=== PATIENT | female | born 2000 | race Caucasian/White ===

== ENCOUNTER 2020-05-07 03:13 | Outpatient (CLI) | payer OTHER, SELFPAY ==
--- NOTE | 2020-05-07 03:13 | OBADM ---
This patient, Ilene Kwan, admitted to the OB room Labor/Delivery/Recovery 105 for observation. Patient/family oriented to hospital policies and general routines including ID bracelet, bed and alarms, visiting hours, pain management, procedures, bathroom and other care routines, personal items, smoking policy, room service/diet, and visiting hours. Patient/Family are encouraged to report perceived risks to care and to ask questions if they do not understand what they are told or what they should do.
[2020-05-07 03:28] VITALS: BMI 21.7
[2020-05-07 03:29] VITALS: TEMP 36.6
[2020-05-07 03:32] VITALS: BP 129/68; PULSE 81
[2020-05-07 03:46] VITALS: BP 120/79; PULSE 83
--- NOTE | 2020-05-07 03:51 | PC.NURSE ---
Dr. Zhao notified of negative ROM plus results, NST reactive. NST reviewed in department. Discharge orders received.
[2020-05-07 03:52] VITALS: BP 120/79; PULSE 83
== END 2020-05-07 04:07 | disposition home or self-care (01) ==
LOC: ANHLDR 04:02 → ANHOBOP 05-11 06:34
PROVIDERS: Visit Provider Obstetrics & Gynecology
DX: Z34.93 Encounter for supervision of normal pregnancy, unspecified, third trimester (principal); Z3A.35 35 weeks gestation of pregnancy; R10.9 Unspecified abdominal pain
CPT/HCPCS: 59025; 84112

== ENCOUNTER 2020-05-25 18:10 | Observation (INO) | payer OTHER, SELFPAY ==
[2020-05-25 18:45] VITALS: BP 124/72; PULSE 108
[2020-05-25 19:02] VITALS: BMI 21.4
--- NOTE | 2020-05-25 19:02 | OBADM ---
This patient, Ilene Kwan, admitted to the OB room Labor/Delivery/Recovery 106 for observation. Patient/family oriented to hospital policies and general routines including ID bracelet, bed and alarms, visiting hours, pain management, procedures, bathroom and other care routines, personal items, smoking policy, room service/diet, and visiting hours. Patient/Family are encouraged to report perceived risks to care and to ask questions if they do not understand what they are told or what they should do.
[2020-05-25 19:16] LABS: Add Urine Microscopic? YES; Appearance Urine Clear (Clear); Bacteria Urine Trace /hpf; Bilirubin Urine Negative (Negative); Blood Urine Negative (Negative); Color Urine Yellow (Yellow); Glucose Urine UA Negative (Negative); Ketones Urine Trace mg/dL (Negative); Leukocyte Esterase Ur Negative LEU/UL (Negative); Mucus Urine Few /lpf; Nitrate Urine Negative (Negative); Protein Urine Negative (Negative); RBC Urine 0-2 /hpf (0-2); Specific Grav Ur 1.019 (1.001-1.035); Squamous Epithelial Cell Urine Occasional /hpf (Few); Urobilinogen Urine Negative mg/dL (<2.0); WBC Urine 0-3 /hpf
--- NOTE | 2020-05-28 12:40 | P.PNOB_ITS ---
OB - Triage/Final Diagnosis Evaluation Laboratory results: Laboratory Tests 05/25/20 19:06 Urine Color Yellow Urine Appearance Clear Urine pH 6.0 Ur Specific [place] 1.019 Urine Protein Negative Urine Glucose (UA) Negative Urine Ketones Trace Ur Blood (Man) Negative Urine Nitrate Negative Urine Bilirubin Negative Urine Urobilinogen Negative Leukocyte Esterase Rfl Negative Urine RBC 0-2 Urine WBC 0-3 Ur Squamous Epith Cells Occasional Urine Bacteria Trace Urine Mucus Few H Final Diagnosis (1) Abdominal pain affecting : Code(s): O26.899 - Other specified related conditions, unspecified trimester; R10.9 - Unspecified abdominal pain Status: Acute
== END 2020-05-25 19:39 | disposition home or self-care (01) ==
PROVIDERS: Admitting Provider Obstetrics & Gynecology; PCP Family Medicine; Visit Provider Obstetrics & Gynecology
DX: O26.893 Other specified pregnancy related conditions, third trimester (principal); R10.9 Unspecified abdominal pain; Z3A.37 37 weeks gestation of pregnancy
CPT/HCPCS: 81001; G0378; G0379

== ENCOUNTER 2020-06-03 00:25 | Observation (INO) | payer OTHER, SELFPAY ==
[2020-06-03 02:32] VITALS: BMI 21.9
--- NOTE | 2020-06-03 02:32 | LDADM ---
This patient, Ilene Kwan, was admitted to Labor/Delivery/Recovery 104 on 06/03/20 at 00:25. Plans for labor, pain management and were discussed with patient. Patient/family oriented to hospital policies and general routines including ID bracelet, bed and alarms, visiting hours, pain management, procedures, bathroom and other care routines, personal items, smoking policy, room service/diet and guest tray routines, infant security routines, and visiting hours. Patient/Family are encouraged to report perceived risks to care and to ask questions if they do not understand what they are told or what they should do. See OBIX for further documentation.
--- NOTE | 2020-06-03 03:18 | PC.NURSE ---
pt came in c/o contractions that started around 2200-06/02/2020. stated that they were anywhere from 10-20 minutes apart. pt has not felt contractions since being here but does c/o lower back pain that comes and goes. 0215- spoke with Dr. Zhao- informed of pt being in OB unit. update on status given. cervical exam with no change from admission. pt not feeling any contractions at this time. ok to d/c home. pt instructed on when to return to OB unit.
--- NOTE | 2020-06-09 11:15 | PM.OBTRLD ---
OB - Triage/Final Diagnosis Final Diagnosis (1) Abdominal pain affecting : Code(s): O26.899 - Other specified related conditions, unspecified trimester; R10.9 - Unspecified abdominal pain Status: Acute Plan: mild, irregular ctx's noted; no change in cervix. FHT reassuring. pt was discharged home.
== END 2020-06-03 02:45 | disposition home or self-care (01) ==
PROVIDERS: Admitting Provider Obstetrics & Gynecology; PCP Family Medicine; Visit Provider Obstetrics & Gynecology
DX: O26.899 Other specified pregnancy related conditions, unspecified trimester (principal); R10.9 Unspecified abdominal pain; Z3A.00 Weeks of gestation of pregnancy not specified
CPT/HCPCS: G0378; G0379

== ENCOUNTER 2020-06-08 06:43 | Inpatient (IN) | payer OTHER, SELFPAY ==
[2020-06-08] VITALS (97 sets, daily range): BP systolic 99–187; BP diastolic 65–95; PULSE 61–101; RESP 13; TEMP 36.6–36.9; O2SAT 98–100
[2020-06-08 07:37] LABS: Basophils Percent Auto 0.2 % (0.2-1.2); Eosinophils Absolute Auto 0.1 K/mm3 (0-0.3); Eosinophils Percent Auto 1.1 % (0-4.4); Hematocrit 35.1 % (37.0-47.0); Hemoglobin 12.1 g/dL (12.0-15.0); Immature Granulocyte Absolute 0.04 K/mm3 (0.00-0.031); Immature Granulocyte Percent A 0.4 % (0-0.5); Immature Platelet Fraction Pct 18.3 % (0.9-11.2); Lymphocytes Absolute Auto 1.85 K/mm3 (0.9-3.2); Lymphocytes Percent Auto 19.8 % (18.3-44.2); Mean Corpuscular HGB Conc 34.5 g/dl (32-36); Mean Corpuscular Hemoglobin 30.5 pg (26-34); Mean Corpuscular Volume 88.4 fl (80-100); Mean Platelet Volume 14.3 fl (7.4-10.4); Monocytes Absolute Auto 0.8 K/mm3 (0.1-0.6); Neutrophils Absolute Auto 6.5 K/mm3 (1.3-6.7); Neutrophils Percent Auto 69.5 % (45.5-73.1); Platelet Count Result 117 k/mm3 (150-375); Red Blood Count 3.97 M/mm3 (4.2-5.4); Red Cell Distribution Width 11.9 % (11.5-14.5); White Blood Count 9.4 K/mm3 (4.5-10.0)
[2020-06-08] MEDS: LACTATED RINGERS 1,000 ML 125 ML IV CONT ×3 (07:42→10:55)
[2020-06-08 07:46] LABS: Alanine Aminotransferase 14 U/L (4-35); Albumin Level 3.8 g/dL (3.5-5.1); Alkaline Phosphatase 84 U/L (38-126); Anion Gap 8 mmol/L (8-16); Aspartate Amino Transferase 22 U/L (14-36); Bilirubin,Total 0.3 mg/dL (0.2-1.3); Blood Urea Nitrogen 14 mg/dL (7-17); Calcium 8.7 mg/dL (8.4-10.2); Carbon Dioxide 23 mmol/L (22-30); Chloride 104 mmol/L (98-107); Estimated Glomerular Filt Rate > 60; Glucose 103 mg/dL (65-105); Potassium 3.6 mmol/L (3.4-5.0); Sodium 135 mmol/L (137-145); Uric Acid 3.6 mg/dL (2.5-7.5)
--- NOTE | 2020-06-08 08:00 | PM.IMHP ---
H&P: HPI History of Present Illness Date/Time: 06/08/20 0800 Chief complaint: IOL Narrative: Ilene Kwan is a 19 yo @ 39.2wks who presented for elective IOL. Good movement. She does report contractions. No bleeding or leakage of fluid. Review of Systems Constitutional: Constitutional: Denies body ache(s), Denies chills and Denies fatigue Eyes: Eyes: Denies blurry vision Cardiovascular: Cardiovascular: Denies chest pain and Denies palpitations Respiratory: Respiratory: Denies cough and Denies dyspnea Gastrointestinal: Gastrointestinal: Denies abdominal pain, Denies nausea and Denies vomiting Genitourinary: Genitourinary: Denies vaginal discharge Neurologic: Denies headache(s) Psychiatric: Psychiatric: Denies anxiety [facility] Family History Family History Grandparent Alzheimer disease Cancer Arthritis Heart attack Father Suicide Social History Social History Years smoked: 1 Smoking status: Former smoker Tobacco type: cigarettes Second hand tobacco smoke exposure: Yes Substance use: never Spiritual care concerns: No Meds Home Medications and Allergies Home Medications Medication Instructions Recorded Confirmed Type PNV cmb#95-ferrous fumarate-FA 1 tablet PO DAILY 05/07/20 06/08/20 History [] Allergies Allergy/AdvReac Type Severity Reaction Status Date / Time No Known Allergies Allergy Verified 05/20/20 14:55 Vital Signs Vital Signs - 24 hr 06/08/20 07:03 06/08/20 07:18 06/08/20 07:30 Temperature Pulse Rate 84 101 H 85 Blood Pressure 152/85 H 141/82 H 130/76 Pulse Oximetry 06/08/20 08:00 06/08/20 08:15 06/08/20 08:30 Temperature Pulse Rate 90 88 88 Blood Pressure 136/90 132/85 130/88 Pulse Oximetry 06/08/20 09:17 06/08/20 09:18 06/08/20 09:30 Temperature 36.8 C Pulse Rate 79 78 Blood Pressure 128/80 116/70 Pulse Oximetry 06/08/20 09:45 06/08/20 10:15 06/08/20 10:30 Temperature Pulse Rate 84 72 72 Blood Pressure 119/77 138/81 102/67 Pulse Oximetry 06/08/20 10:46 06/08/20 10:59 06/08/20 11:00 Temperature 36.6 C Pulse Rate 82 81 78 Blood Pressure 148/83 H 131/80 129/83 Pulse Oximetry 06/08/20 11:03 06/08/20 11:05 06/08/20 11:07 Temperature Pulse Rate 82 88 88 Blood Pressure 137/84 142/86 H 137/84 Pulse Oximetry 06/08/20 11:10 06/08/20 11:12 06/08/20 11:13 Temperature Pulse Rate 85 83 Blood Pressure 139/87 138/83 Pulse Oximetry 99 06/08/20 11:15 06/08/20 11:17 06/08/20 11:18 Temperature Pulse Rate 91 86 Blood Pressure 135/79 135/79 Pulse Oximetry 98 06/08/20 11:20 06/08/20 11:23 06/08/20 11:25 Temperature Pulse Rate 86 86 86 Blood Pressure 135/87 116/83 137/83 Pulse Oximetry 100 06/08/20 11:27 06/08/20 11:28 06/08/20 11:30 Temperature Pulse Rate 86 81 Blood Pressure 134/84 138/73 Pulse Oximetry 99 06/08/20 11:32 06/08/20 11:33 06/08/20 11:35 Temperature Pulse Rate 79 85 Blood Pressure 133/79 129/75 Pulse Oximetry 99 06/08/20 11:37 06/08/20 11:38 06/08/20 11:40 Temperature Pulse Rate 82 86 Blood Pressure 127/81 130/81 Pulse Oximetry 99 06/08/20 11:42 06/08/20 11:43 06/08/20 11:45 Temperature Pulse Rate 79 81 Blood Pressure 125/79 126/73 Pulse Oximetry 100 06/08/20 11:47 06/08/20 11:48 06/08/20 11:53 Temperature Pulse Rate 78 76 Blood Pressure 120/76 118/70 Pulse Oximetry 100 100 06/08/20 11:56 06/08/20 11:57 06/08/20 11:58 Temperature Pulse Rate 80 72 Blood Pressure 123/67 123/73 Pulse Oximetry 100 06/08/20 12:00 06/08/20 12:02 06/08/20 12:03 Temperature Pulse Rate 74 66 Blood Pressure 132/74 125/73 Pulse Oximetry 100 06/08/20 12:05 06/08/20 12:07 06/08/20 12:08 Temperature Pulse Rate 74 71 Blood Pressur
[2020-06-08] MEDS: OXYTOCIN 30 UNITS/NS 500 ML 30 UNITS/500 ML BAG IV CONT (08:03)
--- NOTE | 2020-06-08 13:00 | LDADM ---
This patient, Ilene Kwan, was admitted to Labor/Delivery/Recovery 106 on 06/08/20 at 06:43. Plans for labor, pain management and were discussed with patient. Patient/family oriented to hospital policies and general routines including ID bracelet, bed and alarms, visiting hours, pain management, procedures, bathroom and other care routines, personal items, smoking policy, room service/diet and guest tray routines, infant security routines, and visiting hours. Patient/Family are encouraged to report perceived risks to care and to ask questions if they do not understand what they are told or what they should do. See OBIX for further documentation.
--- NOTE | 2020-06-08 14:53 | PM.OBPRVD ---
OB - Delivery Note Procedure Delivery date: 06/08/20 Procedure: Patient progressed to complete dilation and began pushing with good effort. Prolonged decels down to the 80s were noted for a couple minutes. The patient was counseled on need for episiotomy and vacuum extraction and agreed. A small right medial lateral episiotomy was made and the vacuum was placed. With the next contraction and maternal pushing, one pull was performed and the head delivered without complications. The shoulders and body delivered without complications as well. He was immediately placed skin to skin and the mouth and nose were bulb suctioned. The umbilical cord was clamped and cut and the was taken over to the warmer for stimulation and resuscitation by the pediatric nurse. He was given approximately 5 breaths and spontaneous cry and significant skin color change were noted. A segment of the umbilical cord was then collected for cord gases and the remaining cord blood was collected for typing. With Pitocin running and gentle traction on the umbilical cord, the placenta delivered without issues. Bimanual exam showed good uterine tone and minimal bleeding. The cervix, vagina, and perineum were examined and the only laceration noted was the right medial lateral episiotomy. The episiotomy was repaired using 2 0 Vicryl in the normal fashion and good hemostasis was noted. Mom and baby were left bonding skin to skin in a stable condition in the birthing suite. events: Labor Augmentation Induction method: AROM Delivery augmentation: pitocin Delivery monitor: external FHT and external uterine Route of delivery: vacuum extraction Indication for instrumentation: nonreassuring FHR tracing Episiotomy description: Right Mediolateral Delivery repair: vicryl Specimen: No Estimated blood loss (mL): 200 Anesthesia type: Epidural Disposition: floor [place] Baby Date of : 06/08/20 Time of : 14:24 Weeks of gestation at delivery: 39 Infant gender: Male Weight (pounds): 6 Weight (ounces): 7 presentation: vertex Placenta delivery description: Expressed cord vessel description: 3 Vessels score one minute: 6 score five minutes: 9
[2020-06-08] MEDS: OXYTOCIN 30 UNITS/NS 500 ML 30 UNITS/500 ML BAG 125 UNITS IV CONT (14:59)
[2020-06-08] MEDS: IBUPROFEN 600 MG TABLET PO (17:22)
[2020-06-08] MEDS: WITCH HAZEL 40 PADS 1 PAD TOPICAL (17:22)
[2020-06-08] MEDS: BENZOCAINE 20% AER SPR (*SP) 56 GM CAN 1 SPRAY TOPICAL (17:22)
--- NOTE | 2020-06-08 18:42 | PC.NURSE ---
1740-Patient transferred to post room #286 via wheelchair. Support person present. Oriented to unit, room, information board, rooming in, admission packet and security measures. Patient verbalizes understanding.
[2020-06-09] MEDS: IBUPROFEN 600 MG TABLET PO ×3 (05:14→23:59)
[2020-06-09 05:49] LABS: Basophils Percent Auto 0.2 % (0.2-1.2); Eosinophils Absolute Auto 0.1 K/mm3 (0-0.3); Eosinophils Percent Auto 0.8 % (0-4.4); Hematocrit 35.3 % (37.0-47.0); Hemoglobin 11.7 g/dL (12.0-15.0); Immature Granulocyte Absolute 0.06 K/mm3 (0.00-0.031); Immature Granulocyte Percent A 0.5 % (0-0.5); Immature Platelet Fraction Pct 17.9 % (0.9-11.2); Lymphocytes Absolute Auto 2.03 K/mm3 (0.9-3.2); Lymphocytes Percent Auto 16.7 % (18.3-44.2); Mean Corpuscular HGB Conc 33.1 g/dl (32-36); Mean Corpuscular Hemoglobin 29.7 pg (26-34); Mean Corpuscular Volume 89.6 fl (80-100); Mean Platelet Volume 13.8 fl (7.4-10.4); Monocytes Absolute Auto 1.1 K/mm3 (0.1-0.6); Monocytes Percent Auto 8.9 % (2.6-8.5); Neutrophils Absolute Auto 8.9 K/mm3 (1.3-6.7); Neutrophils Percent Auto 72.9 % (45.5-73.1); Platelet Count Result 106 k/mm3 (150-375); Red Blood Count 3.94 M/mm3 (4.2-5.4); Red Cell Distribution Width 11.9 % (11.5-14.5); White Blood Count 12.2 K/mm3 (4.5-10.0)
[2020-06-09 07:11] LABS: Rapid Plasma Reagin Non-Reactive (NonReactive)
--- NOTE | 2020-06-09 07:52 | WPDANLDPN2 ---
Anes-Prog Note L&D Date/Time: 06/09/20 07:52 Comfortable throughout: labor and delivery Neuraxial method: epidural Epidural/Spinal procedure site: clean & non-tender Neuro status: Neuro function grossly intact. Cardiovascular status: normal Respiratory status: normal Airway patency: baseline Mental status: baseline Post-Op hydration status: normal Vital Signs: Last Vital Signs Temp 36.6 C 06/08/20 19:15 Pulse 67 06/08/20 19:15 Resp 13 06/08/20 19:15 BP 99/67 L 06/08/20 19:15 Pulse Ox 100 06/08/20 19:15 I/O: Intake & Output 06/08/20 06/08/20 06/09/20 15:59 23:59 07:59 Intake Total 3500 Output Total 900 500 Balance 2600 -500 Post-procedural complaints: none Patient feedback: Patient satisfied with anesthetic care.
[2020-06-09 08:00] VITALS: BP 115/63; PULSE 773; RESP 18; TEMP 36.3
[2020-06-09] MEDS: MULTIVIT/MIN/PREN/FOL AC/IRON TABLET 1 TAB PO (08:46)
[2020-06-09] MEDS: DOCUSATE SODIUM 100 MG CAPSULE PO ×2 (08:46→17:58)
--- NOTE | 2020-06-09 10:30 | PC.NURSE ---
Mother called out for assist with latch and waking . Mother is concerned infant is not waking. Assured mother this is normal for the first several days. Mother reports 's last feeding at 0815 was formula. Reviewed feeding cues, frequencies, duration of feedings, feeding elimination flow sheet, and signs of adequate intake. Demonstrated stimulation techniques to wake infant for feeding. Assisted with infant to breast. Reviewed positioning/alignment in cross cradle, holding breast in U hold and guided asymmetrical latch on. Discussed rational for each. Infant was unable to latch correctly within the first few attempts. was sleepy and made minimal effort to suckle. Advised to skin to skin and attempt again in 1 hour.
--- NOTE | 2020-06-09 11:30 | PC.NURSE ---
Demonstrated stimulation techniques to wake infant for feeding. Assisted with to breast. Reviewed positioning/alignment in cross cradle, holding breast in U hold and guided asymmetrical latch on. Discussed rational for each. was unable to latch correctly within the first few attempts. was sleepy and made minimal effort to suckle. Discussed feeding options at this time. Mother would like to supplement and initiate pumping.
--- NOTE | 2020-06-09 11:50 | PC.NURSE ---
Breast pump provided due to ineffective feeding. Instructions given on breast pump care and usage, pumping schedule, nipple care, and collection and storage of breast milk. Encouraged [id number], breast massage and manual expression to stimulate supply. Assessed patient for correct flange size, placement and draw. Patient verbalizes and demonstrates understanding of instructions.
--- NOTE | 2020-06-09 12:00 | P.PNOB_ITS ---
OB - PN: Subj Subjective Date/time seen: 06/09/20 12:00 Ilene is a 19yo now P1001 s/p VAVD, PPD #1 Today, Ilene is doing well. She states her pain is controlled. Her bleeding is light. She is tolerating regular diet. She is ambulating w/o issue. She has voided and passed flatus. She is breast and bottle feeding. She desires her son to be circumcised. Had mild range BP's yesterday, one severe overnight that spontaneously resolved. Thrombocytopenia is stable. She denies any N/V, fever, chills, CP, SOB, vision changes, dizziness, or palpitations. OB - PN: Obj Data Labs CBC & Chem 7: 06/09/20 05:32 06/08/20 07:27 Labs: Laboratory Results - last 24 hr 06/08/20 06/09/20 07:14 05:32 WBC 12.2 H RBC 3.94 L Hgb 11.7 L Hct 35.3 L MCV 89.6 MCH 29.7 MCHC 33.1 RDW 11.9 Plt Count 106 L MPV 13.8 H Immature Gran % (Auto) 0.5 Neut % (Auto) 72.9 Lymph % (Auto) 16.7 L Parker % (Auto) 8.9 H Eos % (Auto) 0.8 Baso % (Auto) 0.2 Lymph # (Auto) 2.03 Parker # (Auto) 1.1 H Eos # (Auto) 0.1 Baso # (Auto) 0.0 Abs Immat Gran (auto) 0.06 H Absolute Neuts (auto) 8.9 H Absolute Nucleated RBC 0.0 Nucleated RBC % 0.0 % Immature Plt Fraction 17.9 H RPR Non-reactive OB - PN A/P Assessment and Plan (1) Status post vacuum-assisted vaginal delivery: Code(s): Z87.59 - Personal history of other complications of , childbirth and the puerperium Status: Acute (2) Pre-eclampsia: Qualifiers: Trimester: third trimester Qualified Code(s): O14.93 - Unspecified pre- eclampsia, third trimester Code(s): O14.90 - Unspecified pre-eclampsia, unspecified trimester Status: Acute Plan day: 1 Plan: routine care Comments: - Pt noted to have elevated BPs + thrombocytopenia-- BP's normal today (no need for medications) and pt asymptomatic, will monitor over night with possible d/c home tomorrow. - Return precautions discussed (fever, bleeding, HTN, pain) - Pelvic rest and f/u in clinic in 1 wk for BP check. Time Spent With Patient Time: Total time spent is greater than 50% in coordination of care (as documented) at patient's floor/unit and/or counseling patient: Review of Systems Review of Systems: All systems reviewed & are unremarkable except as noted in HPI and below (HPI) Exam Const: General: comfortable, no acute distress, alert and awake Orientation/consciousness: patient oriented x3 Resp: Effort & Inspection: normal respiratory effort Auscultation: clear to auscultation bilaterally Cardio: Rate: regular rate GI: Auscultation: normal bowel sounds Other: soft, non-distended, non- tender : Other: fundus firm below umbilicus Psych: Appearance: grossly normal Affect: normal affect Attitude: cooperative Judgement: Good judgement present (Psych)
[2020-06-09 19:05] VITALS: BP 123/80; PULSE 77; RESP 15; TEMP 36.4; O2SAT 97
[2020-06-10 07:55] VITALS: BP 111/68; PULSE 70; RESP 18; TEMP 36.6
[2020-06-10] MEDS: DOCUSATE SODIUM 100 MG CAPSULE PO (09:45)
[2020-06-10] MEDS: IBUPROFEN 600 MG TABLET PO (09:45)
[2020-06-10] MEDS: MULTIVIT/MIN/PREN/FOL AC/IRON TABLET 1 TAB PO (09:46)
[2020-06-10] MEDS: TETANUS,DIPHTHERIA,AC PERTUSSIS ADULT (0.5 ML) BOOSTRIX IM (09:46)
--- NOTE | 2020-06-10 11:03 | PC.NURSE ---
Patient viewed the discharge video Mother & Baby Care, The First Two Weeks . Patient was given the opportunity and encouraged to ask questions. Patient verbalized understanding of information shared and has been given the mother/baby guide for home reference.
--- NOTE | 2020-06-10 12:30 | PC.NURSE ---
Consult with pt., mother reports infant will eagerly bottle feed and will not latch and suckle at breast. Offered and explained the nipple shield to assist infant with bridging to nurse at breast. Nipple shield provided to mother due to mother's wishes. Discussed nipple shield precautions and possible complications. Instructions given on application and cleaning of shield. Patient able to return demonstration on proper application of shield. Discussed the need to initiate pumping if continues to nurse with the shield. Patient verbalizes understanding. With shield in place, was able to latch to breast. Reviewed positioning/alignment, holding breast and asymmetrical latch on. nursed eagerly a few short short bursts and made not further effort to suckle. Small amounts of formula to infant mouth and shield. Infant made a short effort to suckle and remained at breast with nipple shield in mouth no suckling noted. Mother's milk is in demonstrated breast compressions to start milk flow. No nursing noted. Suggested mother attempt each feeding using the shield with a few mls of formula by bottle first then transition to breast. Attempt infant for 3-5 minutes, if infant does not suckle then complete feeding with formula and pump for 15 minutes. Discussed feeding plan of 25mls EBM/formula after feeding attempts, increasing supplement as needs increase. Mother has a double electric pump for home use. Discussed when to decrease supplementation if infant begins to nurse effectively at breast. Advised to seek out WIC or return here for apt. before discontinuing supplementation. Mother is feeding as required and waking to feed if needed. is currently meeting outcomes for weight, output, jaundice and feeding frequencies. Mother states she feels confident to continue current feeding plan at home. Reviewed transition to breast milk, signs of adequate intake, and engorgement/relief. Instructed to call ICP if intake/output less than required. Reviewed regular medications mother is taking. Information provided per [facility]. Reviewed community resources on the [employer] website and in the Mom/Baby guide. Information on outpatient services provided. Mother has no further questions at this time.
--- NOTE | 2020-06-11 10:46 | PM.OBDSVD ---
DS: Admitting Diagnosis Admitting Diagnosis Admitting Diagnosis: IOL DS: Discharge Diagnosis Discharge Diagnosis (1) Pre-eclampsia: Qualifiers: Trimester: third trimester Qualified Code(s): O14.93 - Unspecified pre-eclampsia, third trimester Code(s): O14.90 - Unspecified pre-eclampsia, unspecified trimester Status: Acute (2) Status post vacuum-assisted vaginal delivery: Code(s): Z87.59 - Personal history of other complications of , childbirth and the puerperium Status: Acute OB - DS: Summary OB Procedures : None OB Procedures Intrapartum: Vacuum extraction OB Procedures: : None Peripartum Data Delivery Method: Assisted Delivery Episiotomy description: Right Mediolateral complications: none [place] 1: Gender: Male Disposition of : home Status at Discharge Functional status at discharge: independent ambulation Overall status at discharge: patient is back to baseline Time Spent with Patient Time attestation: Total time spent providing and/or coordinating discharge services: Exam Const: General: comfortable, no acute distress, alert and awake Orientation/consciousness: patient oriented x3 Resp: Effort & Inspection: normal respiratory effort Auscultation: clear to auscultation bilaterally Cardio: Rate: regular rate GI: Inspection: non-distended GI Palp: Yes Soft to palpation and No Tenderness to palpation present (GI) Auscultation: normal bowel sounds Psych: Appearance: grossly normal Affect: normal affect Attitude: cooperative Discharge Plan Discharge Attending physician on discharge: Melyssa hZao Discharging Clinician: Melyssa Zhao Anticipated Discharge Date/Time: 06/10/20 13:00 Patient Disposition: Home, Self-Care Activity: pelvic rest Diet: regular Discharge Instructions: Education: Mom and Baby Guide Given to: Mother Follow-Up: Call your delivering provider's office for an appointment to be seen in: 1 Week [facility]. Appointment Date/Time: May at 9:00 a.m. What to expect at your follow-up visit: Blood Pressure Check Physical Assessment Call [phone] if you are unable to keep your appointment time. BREAST CARE: * Wear a snug supportive bra. * For engorgement discomfort: Breast Feeding: * Apply warm moist washcloths * Express milk as needed to relieve engorgement * Wear loose clothing * For sore nipples: * Identify correct latch-on * Apply warm moist washcloths before and after nursing * Air dry nipples after nursing * May apply Lansinoh cream to nipples EPISIOTOMY/PERINEAL CARE: * Until bleeding stops, use your matilda bottle after urinating * Change your pad frequently throughout the day * You may take sitz baths several times a day (fill your bathtub with warm water and soak for 20 minutes.) Do NOT bathe in the water * No tub baths until seen by your physician - You may shower ACTIVITY: * Rest as much as possible. * Do not exercise or lift anything heavier than your baby (such as laundry or other children.) * Avoid stairs or driving as much as possible. * Do not put anything into the vagina. No douching, tampons, or sexual activity until seen by physician. NOTIFY PHYSICIAN IF YOU HAVE ANY QUESTIONS OR IF ANY OF THE FOLLOWING SYMPTOMS OCCUR: * If your episiotomy becomes red, swollen, or more painful than what you have experienced in the hospital. * If your vaginal bleeding becomes foul smelling. * If your vaginal bleeding becomes more heavy than a period or if your bleeding changes from pink to bright red. However, you may pass an occasional walnut-sized clot once or twice for the first week . * If you experience a sharp, shooting pain in you calves. * If
== END 2020-06-10 13:25 | disposition home or self-care (01) | DRG 807 ==
LOC: ANHLDR 06:49 → ANHOB2 17:43
PROVIDERS: Admitting Provider Obstetrics & Gynecology; PCP Family Medicine; Visit Provider Obstetrics & Gynecology
DX: O14.94 Unspecified pre-eclampsia, complicating childbirth (principal); Z37.0 Single live birth; Z3A.39 39 weeks gestation of pregnancy; O36.8330 Maternal care for abnormalities of the fetal heart rate or rhythm, third trimester, not applicable or unspecified
CPT/HCPCS: 36415; 80053; 84550; 85025; 85055; 86592; 86850; 86900; 86901; 90715; A9270; J2590; J2795; J7120

== ENCOUNTER 2020-09-01 14:35 | Emergency (ER) | payer OTHER, SELFPAY ==
[2020-09-01 14:45] VITALS: BP 120/95; PULSE 91; RESP 18; TEMP 36.3; O2SAT 100
== END 2020-09-01 15:00 | disposition left against medical advice (07) ==
LOC: ANHED 15:23
PROVIDERS: PCP Family Medicine
DX: G43.909 Migraine, unspecified, not intractable, without status migrainosus (principal)
CPT/HCPCS: 99199